=== PATIENT | female | born 1995 | race Caucasian/White ===

== ENCOUNTER 2017-10-14 10:47 | Outpatient (CLI) | payer OTHER ==
--- NOTE | 2017-10-14 12:00 | RAD ---
THREE VIEWS CERVICAL SPINE: History: Persistent neck pain for one years. FINDINGS: AP, lateral, and open mouth odontoid views obtained and demonstrate cervical spine alignment to be wi thin normal limits. No evidence of cervical spine fractures, subluxations, or bony lesions seen. Vert ebral bodies are unremarkable. Disc spaces are well maintained. IMPRESSION: Normal three views of the cervical spine. POS: [facility]
== END 2017-10-14 10:48 | disposition home or self-care (01) ==
LOC: SCSRAD 10:47
PROVIDERS: ATTEND Family Medicine
DX: S16.1XXA Strain of muscle, fascia and tendon at neck level, initial encounter (principal)
CPT/HCPCS: 72040

== ENCOUNTER 2018-02-24 10:55 | Outpatient (CLI) | payer OTHER | END 2018-02-24 10:56 | disposition home or self-care (01) | LOC: BICRAD 10:55 | PROVIDERS: ATTEND Physician Assistant Medical | DX: S09.92XA Unspecified injury of nose, initial encounter (principal) | CPT/HCPCS: 70150; 70160 ==